=== PATIENT | female | born 1960 | race Two or more races ===

== ENCOUNTER → 2020-12-12 08:00 | Outpatient (CLI) | payer OTHER ==
[~2020-12-12] VITALS: Ht 152.4 cm; Wt 95.7 kg
[~2020-12-12 08:00] MED LIST: GABAPENTIN300 M2 PO; HUMALOG100 UNIT/2; LEVO-T175 MCG PO; METFORMIN HCL500 M3 PO; SIMVASTATIN40 MG PO; VALSARTAN-HCTZ1 EAC4 PO
== END | disposition home or self-care (01) ==
LOC: LAB 08:00 → SURH 12-19 06:50 → O/R 12-19 06:50 → SURH 12-19 07:00 → O/R 01-01 13:11 → EDSTATUS 01-10 10:45 → SURH 01-10 10:45
PROVIDERS: ATTEND Colon & Rectal Surgery
DX: K63.2 Fistula of intestine (principal); Z03.818 Encounter for observation for suspected exposure to other biological agents ruled out; K43.2 Incisional hernia without obstruction or gangrene